=== PATIENT | female | born 1960 | race Two or more races ===

== ENCOUNTER 2021-07-23 13:48 | Emergency (ER) | payer OTHER ==
[~2021-07-23] VITALS: Ht 160 cm; Wt 54.4 kg
[2021-07-23 15:23] VITALS: BP 161/99
[2021-07-23] MEDS ORDERED: TETANUS-DIPTH-ACEL PERTUSSIS 0.5ML SYR Tdap IM ONE (15:45)
== END 2021-07-23 18:16 | disposition home or self-care (01) ==
LOC: ER 13:48
DX: S51.812A Laceration without foreign body of left forearm, initial encounter (principal); Z90.49 Acquired absence of other specified parts of digestive tract; Z90.710 Acquired absence of both cervix and uterus; W26.0XXA Contact with knife, initial encounter; Y93.89 Activity, other specified; Y92.89 Other specified places as the place of occurrence of the external cause; Y99.8 Other external cause status
CPT/HCPCS: 12002; 90471; 90715

== ENCOUNTER 2024-12-20 17:24 | Emergency (ER) | payer OTHER ==
[~2024-12-20] VITALS: Ht 152.4 cm; Wt 61.4 kg
[2024-12-20 20:35] VITALS: BP 167/101; TEMP 98
[2024-12-20 20:56] VITALS: PULSE 114; RESP 14; O2SAT 98
--- NOTE | 2024-12-20 20:56 | ED.PDOC ---
HPI Comments 64 y/o F, with a Hx of DM and HTN, presents with c/o avulsion wound with associated pain to 3rd and 4th digits of left hand, today. 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 She comments on sustaining no additional injuries and being unsure of when she received her last tetanus shot. Patient denies having any numbness or tingling to digits, vision or speech changes, lightheadedness, dizziness, weakness, or other associated symptoms or modifiers at this time. Chief Complaint: Laceration Time Seen by MD: 18:06 Primary Care Provider: WORK [employer] Reviewed Notes: Nurses Notes, Medications, Allergies Allergies: Coded Allergies: NO KNOWN ALLERGIES (Unverified , 07/08/11) Home Meds Active Scripts Amoxicillin & Pot Clavulanate (AUGMENTIN TABLET) 875 Mg Tb, 875 MG PO BID for 7 Days, #14 TAB Prov:JUAN BERMEO SANDIP 12/21/24 Information Source: Patient Mode of Arrival: Ambulatory Severity: Moderate Severity of Laceration: Deformity, Uncontrolled Bleeding Complexity: Complex Timing: Hours Prehospital treatment: None Laceration Location: Hand (left), Digit #3, Digit #4 Mechanism: Metal, Work Related Last Tetanus: Unknown Laceration Length (cm): 1 Skin Type: Avulsion (3rd digit), Flap (4th digit ) Depth of Injury: SQ, Muscle, Tendon Tendon Injury: 0% Capillary Refill: None Tender: Moderate Discharge: Bloody Erythema: None Associated Signs and Symptoms: Other (pain ) Past Medical History PAST MEDICAL HISTORY: DM, HTN Surgical History: Cholecystectomy, Hysterectomy, Tubal Ligation TUB MENDER History: No Pertinent TUB MENDER History Family History Family History: Unknown Social History Smoker: Non-Smoker Alcohol: Denies ETOH Use Drugs: Denies Drug Use Lives In: Home Integumetry: reports: wounds (avulsion to 3rd and 4th digit of left hand ) All Other Systems: Reviewed and Negative (negative unless otherwise stated above or in HPI) Physical Exam General Appearance: No Apparent Distress, Normal HEENT: Normal ENT Inspection, Pharynx Normal, TMs Normal Neck: Full Range of Motion, Non-Tender, Normal, Normal Inspection Respiratory: Chest Non-Tender, Lungs Clear, No Accessory Muscle Use, No Respiratory Distress, Normal Breath Sounds Cardiovascular: No Edema, No JVD, No Murmur, No Gallop, Normal Peripheral Pulses, Regular Rate/Rhythm Breast Exam: Deferred Gastrointestinal: No Organomegaly, Non Tender, No Pulsatile Mass, Normal Bowel Sounds, Soft Genitalia: Deferred Pelvic: Deferred Rectal: Deferred Extremities: No calf tenderness, Normal capillary refill, Normal inspection, Normal range of motion, Non-tender, No pedal edema Musculoskeletal : Apperance: Normal Neurologic: Alert, code inspector II-XII nml as Tested, No Motor Deficits, Normal Affect, Normal Mood, No Sensory Deficits Cerebellar Function: Normal Reflexes: Normal Skin: Dry, Normal Color, Warm, Wounds (avulsions to anterior aspect of 3rd and 4th digit of land hand in mid-phalanx region ) Lymphatic: No Adenopathy Was a procedure done? Was a procedure done?: No Differential diagnosis Generic Laceration: Laceration, Avulsion X-Ray, Labs, Meds, VS Vital Signs Date Time Temp Pulse Resp B/P (MAP) Pulse Ox O2 Delivery O2 Flow Rate FiO2 12/20/24 20:56 114 14 98 Room Air 12/20/24 20:35 98.0 114 14 167/101 (123) 98 98.0 12/20/24 17:40 98.3 20 16 167/106 (126) 97 X-Ray, Labs, Meds, VS Comment Third and 4th digit avulsions required Surgicel dressing to stop bleeding with minimal blood loss patient tolerated well. X-ray of left hand shows no acute findings or osseous lesions. Advised to follow up with employee health for wound re-evaluation and to return to work. Cautions given for signs and symptoms of infection uncontrolled bleeding. Prophylactic antibiotics sent to the pharmacy. Patient agrees with discharge plan of care indicates understanding. [id number] Tylenol as needed for pain per labeled dosing instructions. Time of 1ST Reevaluation: 18:36 Reevaluation 1ST: Unchanged Time of 2ND Reevaluation: 23:49 Reevaluation 2ND: Improved Patient Education/Counseling: Diagnosis, Treatment Family Education/Counseling: Diagnosis, Treatment, Prognosis, Need For Follow Up, No Family Present Departure 1 Departure Time of Disposition: 23:48 Impression: Primary Impression: Avulsion of finger Qualified Codes: S61.209A - Unspecified open wound of unspecified finger without damage to nail, initial encounter Disposition: HOME / SELF CARE / HOMELESS Condition: Stable e-Prescriptions Amoxicillin & Pot Clavulanate (AUGMENTIN TABLET) 875 Mg Tb 875 MG PO BID for 7 Days, #14 TAB Prov: JUAN BERMEO 12/21/24 Discharged With: Self Critical Care Note Critical Care Time?: No Stability Stability form required: No Heart Score Heart Score: Heart Score Response (Comments) Value History N/A 0 EKG N/A 0 Age N/A 0 Risk Factors N/A 0 Troponin N/A 0 Total 0 I personally scribed for ER ([email or web address]) on 12/20/24 at 21:10. Electronically submitted by Juan Pablo Mattson ([email or web address]). JUAN BERMEO [facility] Dec 20, 2024 20:56 ER Dec 20, 2024 21:10
[2024-12-21] MEDS ORDERED: AUG875T PO (00:06)
--- NOTE | 2024-12-21 01:15 | DVH ---
XY L HAND 3V XRAY, INDICATION: avulsion 3rd and 4th digits TECHNICAL DATA: Frontal, oblique and lateral views were obtained of the left hand. COMPARISON: None FINDINGS: No fracture is identified. Degenerative changes involving the interphalangeal joints and the carpal j oints. Alignment is anatomic. Soft tissue injury involving the 3rd and 4th digits. IMPRESSION: No acute fracture or dislocation of the left hand.
== END 2024-12-21 01:54 | disposition home or self-care (01) ==
LOC: ER 17:35
DX: S61.205A Unspecified open wound of left ring finger without damage to nail, initial encounter (principal); S61.207A Unspecified open wound of left little finger without damage to nail, initial encounter; E11.9 Type 2 diabetes mellitus without complications; I10 Essential (primary) hypertension; Z90.49 Acquired absence of other specified parts of digestive tract; Z90.89 Acquired absence of other organs; Z90.710 Acquired absence of both cervix and uterus; W26.0XXA Contact with knife, initial encounter; Y93.89 Activity, other specified; Y92.89 Other specified places as the place of occurrence of the external cause; Y99.8 Other external cause status
CPT/HCPCS: 73130